=== PATIENT | female | born 1965 | race Caucasian/White ===

== ENCOUNTER 2018-07-18 16:47 | Emergency (ER) | payer OTHER ==
[~2018-07-18] VITALS: Ht 162.6 cm; Wt 131.5 kg
--- OUTSIDE RECORDS SUMMARY | ~2018-07-18 | XMS ---
Demographics + + + | Address | [address] | | | [address] | | | [place] [address] | + + + | Preferred Language | Unknown | + + + | Marital Status | Unknown | + + + | Synagogue Affiliation | Unknown | + + + | Race | Unknown | + + + | Ethnic Group | Unknown | + + + Author + + + | Author | [facility] | + + + | Organization | [facility] | + + + | Address | [address] | | | [place] [address] | + + + | Phone | | + + + Care Team Providers + + + + | Care Lean Engineer Name | Role | Phone | + + + + Unavailable | Unavailable | + + + + PROBLEMS +---------+ + + +--------+ + + | Type | Condition | ICD9-CM | [id number] | Onset | Condition | SNOMED | | | | Code | Code | Dates | Status | Code | +---------+ + + +--------+ + + | Problem | History of | Z87.448 | | | Active | [id number] | | | renal | | | | | | | | failure | | | | | | +---------+ + + +--------+ + + | Problem | Gastric | Z98.84 | | | Active | 421946945 | | | bypass | | | | | | | | status for | | | | | | | | obesity | | | | | | +---------+ + + +--------+ + + | Problem | Fatigue | | R53.83 | | Active | 22336463 | +---------+ + + +--------+ + + | Problem | Endometria | R93.8 | | | Active | 824778573 | | | l stripe | | | | | | | | increased | | | | | | +---------+ + + +--------+ + + | Problem | Anemia, | | D64.9 | | Active | 072952025 | | | unspecifie | | | | | | | | d | | | | | | +---------+ + + +--------+ + + | Problem | Wellness | Z00.00 | | | Active | [id number] | | | examinatio | | | | | 66643 | | | n | | | | | | +---------+ + + +--------+ + + | Problem | Knee joint | Z96.659 | | | Active | 188329212 | | | | | | | | | | | replacemen | | | | | | | | t by other | | | | | | | | means | | | | | | +---------+ + + +--------+ + + | Problem | Excessive | N92.0 | | | Active | 542811665 | | | and | | | | | | | | frequent | | | | | | | | menstruati | | | | | | | | on with | | | | | | | | regular | | | | | | | | cycle | | | | | | +---------+ + + +--------+ + + | Problem | Excessive | N92.0 | | | Active | 292922067 | | | or | | | | | | | | frequent | | | | | | | | menstruati | | | | | | | | on | | | | | | +---------+ + + +--------+ + + | Problem | Iron | | D50.9 | | Active | 35206968 | | | deficiency | | | | | | | | anemia | | | | | | +---------+ + + +--------+ + + | Problem | Osteoarthr | 715.90 | | | Active | 621070930 | | | itis | | | | | | +---------+ + + +--------+ + + | Problem | Radicular | M54.16 | | | Active | 196852179 | | | pain of | | | | | | | | right | | | | | | | | lower back | | | | | | +---------+ + + +--------+ + + | Problem | Pain in | | M25.511 | | Active | 954143694 | | | right | | | | | | | | shoulder | | | | | | +---------+ + + +--------+ + + | Problem | Sleep | G47.20 | | | Active | 58988618 | | | pattern | | | | | | | | disturbanc | | | | | | | | e | | | | | | +---------+ + + +--------+ + + ALLERGIES Unknown Allergies SOCIAL HISTORY No smoking Hx information available PLAN OF CARE VITAL SIGNS MEDICATIONS Unknown Medications RESULTS No Results PROCEDURES No Known procedures IMMUNIZATIONS No Known Immunizations"
--- OUTSIDE RECORDS SUMMARY | ~2018-07-18 | XMS ---
Demographics + + + | Address | [address] | | | [address] | | | [place] [address] | + + + | Preferred Language | Unknown | + + + | Marital Status | Unknown | + + + | Caodaism Affiliation | Unknown | + + + | Race | Unknown | + + + | Ethnic Group | Unknown | + + + Author + + + | Author | [facility] | + + + | Organization | [facility] | + + + | Address | [address] | | | [place] [address] | + + + | Phone | | + + + Care Team Providers + + + + | Care Operational Risk Consultant Name | Role | Phone | + + + + Unavailable | Unavailable | + + + + PROBLEMS +---------+ + + +--------+ + + | Type | Condition | ICD9-CM | [id number] | Onset | Condition | SNOMED | | | | Code | Code | Dates | Status | Code | +---------+ + + +--------+ + + | Problem | History of | Z87.448 | | | Active | 866629946 | | | renal | | | | | | | | failure | | | | | | +---------+ + + +--------+ + + | Problem | Gastric | Z98.84 | | | Active | 200697798 | | | bypass | | | | | | | | status for | | | | | | | | obesity | | | | | | +---------+ + + +--------+ + + | Problem | Fatigue | | R53.83 | | Active | 04831602 | +---------+ + + +--------+ + + | Problem | Endometria | R93.8 | | | Active | 348435282 | | | l stripe | | | | | | | | increased | | | | | | +---------+ + + +--------+ + + | Problem | Anemia, | | D64.9 | | Active | 979399275 | | | unspecifie | | | | | | | | d | | | | | | +---------+ + + +--------+ + + | Problem | Wellness | Z00.00 | | | Active | 7511095629 | | | examinatio | | | | | 630[address] | | | n | | | | | | +---------+ + + +--------+ + + | Problem | Knee joint | Z96.659 | | | Active | 232836329 | | | | | | | | | | | replacemen | | | | | | | | t by other | | | | | | | | means | | | | | | +---------+ + + +--------+ + + | Problem | Excessive | N92.0 | | | Active | 571973020 | | | and | | | [...] | N92.0 | | | Active | 647140914 | | | or | | | | | | | | frequent | | | | | | | | menstruati | | | | | | | | on | | | | | | +---------+ + + +--------+ + + | Problem | Iron | | D50.9 | | Active | 00350776 | | | deficiency | | | | | | | | anemia | | | | | | +---------+ + + +--------+ + + | Problem | Osteoarthr | 715.90 | | | Active | 678085590 | | | itis | | | | | | +---------+ + + +--------+ + + | Problem | Radicular | M54.16 | | | Active | 518172651 | | | pain of | | | | | | | | right | | | | | | | | lower back | | | | | | +---------+ + + +--------+ + + | Problem | Pain in | | M25.511 | | Active | 163541818 | | | right | | | | | | | | shoulder | | | | | | +---------+ + + +--------+ + + | Problem | Sleep | G47.20 | | | Active | 44527135 | | | pattern | | | | | | | | disturbanc | | | | | | | | e | | | | | | +---------+ + + +--------+ + + ALLERGIES Unknown Allergies SOCIAL HISTORY No smoking Hx information available PLAN OF CARE VITAL SIGNS MEDICATIONS + + + + + + + +--------+ | Medicati | Instruct | Dosage | Frequenc | Start | End Date | Duration | Status | | on | ions | | y | Date | | | | + + + + + + + +--------+ | Ambien 5 | Orally | 1 tablet | 24h | 06 John, | | 30 | Active | | MG | Once a | at | | 2017 | | day(s) | | | | day | bedtime | | | | | | + + + + + + + +--------+ RESULTS No Results PROCEDURES No Known procedures IMMUNIZATIONS No Known Immunizations"
--- OUTSIDE RECORDS SUMMARY | ~2018-07-18 | XMS ---
Demographics + + + | Address | [address] | | | [address] | | | [place] [address] | + + + | Preferred Language | Unknown | + + + | Marital Status | Unknown | + + + | Evangelical Affiliation | Unknown | + + + | Race | Unknown | + + + | Ethnic Group | Unknown | + + + Author + + + | Author | [facility] | + + + | Organization | [facility] | + + + | Address | [address] | | | [place] [address] | + + + | Phone | | + + + Care Team Providers + + + + | Care Immigration Case Manager Name | Role | Phone | + + + + Unavailable | Unavailable | + + + + PROBLEMS + + + + + + + + | Type | Condition | ICD9-CM | PVM46-UA | Onset | Condition | SNOMED | | | | Code | Code | Dates | Status | Code | + + + + + + + + | Problem | Sleep | G47.20 | | | Active | 43275929 | | | pattern | | | | | | | | disturbanc | | | | | | | | e | | | | | | + + + + + + + + | Problem | Fatigue | | R53.83 | | Active | 92152152 | + + + + + + + + | Problem | History of | Z87.448 | | | Active | 935322054 | | | renal | | | | | | | | failure | | | | | | + + + + + + + + | Problem | Anemia, | | D64.9 | | Active | 635300437 | | | unspecifie | | | | | | | | d | | | | | | + + + + + + + + | Problem | Excessive | N92.0 | | | Active | 973551468 | | | and | | | | | | | | frequent | | | | | | | | menstruati | | | | | | | | on with | | | | | | | | regular | | | | | | | | cycle | | | | | | + + + + + + + + | Problem | Knee joint | Z96.659 | | | Active | 454855368 | | | | | | | | | | | replacemen | | | | | | | | t by other | | | | | | | | means | | | | | | + + + + + + + + | Problem | Gastric | Z98.84 | | | Active | 900912657 | | | bypass | | | | | | | | status for | | | | | | | | obesity | | | | | | + + + + + + + + | Problem | Excessive | N92.0 | | | Active | 850647105 | | | or | | | | | | | | frequent | | | | | | | | menstruati | | | | | | | | on | | | | | | + + + + + + + + | Problem | Wellness | Z00.00 | | | Active | 0912214859 | | | examinatio | | | | | [address] | | | n | | | | | | + + + + + + + + | Problem | Pain in | | M25.511 | | Active | 054805331 | | | right | | | | | | | | shoulder | | | | | | + + + + + + + + | Problem | Iron | | D50.9 | | Active | 80514535 | | | deficiency | | | | | | | | anemia | | | | | | + + + + + + + + | Assessment | Dermatitis | L25.9 | | 17 June, | Active | 70846888 | | | , contact | | | 2016 | | | + + + + + + + + | Problem | Osteoarthr | 715.90 | | | Active | 843306361 | | | itis | | | | | | + + + + + + + + | Assessment | Anemia, | | D64.9 | 17 June, | Active | 458348338 | | | unspecifie | | | 2016 | | | | | d | | | | | | + + + + + + + + | Problem | Radicular | M54.16 | | | Active | 748412001 | | | pain of | | | | | | | | right | | | | | | | | lower back | | | | | | + + + + + + + + ALLERGIES + + + + +--------+ | Substance | Reaction | Event Type | Date | Status | + + + + +--------+ | erythromycin | Unknown | Drug Allergy | June, | Active | + + + + +--------+ | Sulfa | Unknown | Drug Allergy | June, | Active | + + + + +--------+ | Percocet | Unknown | Drug Allergy | June, | Active | + + + + +--------+ | Dilaudid | Unknown | Drug Allergy | June, | Active | + + + + +--------+ | Demerol | Unknown | Drug Allergy | June, | Active | + + + + +--------+ | ASPIRIN, | Unknown | Non Drug | June, | Active | | DEMEROL, SULFA, | | Allergy | | | | AND | | | | | | AZITHROMYCIN. | | | | | + + + + +--------+ SOCIAL HISTORY No smoking Hx information available PLAN OF CARE + +---------+ | Activity | Details | + +---------+ +---+ | | +---+ + + + | Pending Test | Ultrasound : Pelvis | + + + | | 4 Weeks, prn,Reason: | + + + VITAL SIGNS + + + + | Height | 65.5 in | 2016-07-07 | + + + + | Weight | 294.6 lbs | 2016-07-07 | + + + + | BMI | 48.27 kg/m2 | 2016-07-07 | + + + + | Temperature | 97.5 degrees Fahrenheit | 2016-07-07 | + + + + | Heart Rate | 92 /min | 2016-07-07 | + + + + | Blood pressure systolic | 148 mm Hg | 2016-07-07 | + + + + | Blood pressure diastolic | 92 mm Hg | 2016-07-07 | + + + + MEDICATIONS + + + + + + + +--------+ | Medicati | Instruct | Dosage | Frequenc | Start | End Date | Duration | Status | | on | ions | | y | Date | | | | + + + + + + + +--------+ | Triamcin | External | 1 | 12h | | | 10 | Active | | olone | ly Twice | applicat | | | | day(s) | | | Acetonid | a day | ion to | | | | | | | e 0.1 % | | affected | | | | | | | | | area | | | | | | + + + + + + + +--------+ | Levaquin | Orally | 1 tablet | 24h | 17 June, | 27 June, | 10 | Active | | 750 MG | Once a | | | 2017 | 2017 | day(s) | | | | day | | | | | | | + + + + + + + +--------+ | Oxycodon | Orally | 2 to 4 | 6h | | | | Active | | e HCl 5 | every 6 | caps | | | | | | | MG | hrs | | | | | | | + + + + + + + +--------+ RESULTS No Results PROCEDURES + + + + + | Procedure | Date Ordered | Related Diagnosis | Body Site | + + + + + | Est Level III | July 07, 2016 | | | | Intermediate | | | | + + + + + IMMUNIZATIONS No Known Immunizations"
--- OUTSIDE RECORDS SUMMARY | ~2018-07-18 | XMS ---
Demographics + + + | Address | [address] | | | [address] | | | [place] [address] | + + + | Preferred Language | Unknown | + + + | Marital Status | Unknown | + + + | Amish Affiliation | Unknown | + + + | Race | Unknown | + + + | Ethnic Group | Unknown | + + + Author + + + | Author | [facility] | + + + | Organization | [facility] | + + + | Address | [address] | | | [place] [address] | + + + | Phone | | + + + Care Team Providers + + + + | Care Inside Sales Account Manager Name | Role | Phone | + + + + Unavailable | Unavailable | + + + + PROBLEMS +---------+ + + +--------+ + + | Type | Condition | ICD9-CM | [id number] | Onset | Condition | SNOMED | | | | Code | Code | Dates | Status | Code | +---------+ + + +--------+ + + | Problem | History of | Z87.448 | | | Active | 228327732 | | | renal | | | | | | | | failure | | | | | | +---------+ + + +--------+ + + | Problem | Gastric | Z98.84 | | | Active | 960248284 | | | bypass | | | | | | | | status for | | | | | | | | obesity | | | | | | +---------+ + + +--------+ + + | Problem | Fatigue | | R53.83 | | Active | 64247752 | +---------+ + + +--------+ + + | Problem | Endometria | R93.8 | | | Active | 891696571 | | | l stripe | | | | | | | | increased | | | | | | +---------+ + + +--------+ + + | Problem | Anemia, | | D64.9 | | Active | 653539972 | | | unspecifie | | | | | | | | d | | | | | | +---------+ + + +--------+ + + | Problem | Wellness | Z00.00 | | | Active | 8971481517 | | | examinatio | | | | | 86963 | | | n | | | | | | +---------+ + + +--------+ + + | Problem | Knee joint | Z96.659 | | | Active | 510739961 | | | | | | | | | | | replacemen | | | | | | | | t by other | | | | | | | | means | | | | | | +---------+ + + +--------+ + + | Problem | Excessive | N92.0 | | | Active | 132908891 | | | and | | | [...] | N92.0 | | | Active | 297077041 | | | or | | | | | | | | frequent | | | | | | | | menstruati | | | | | | | | on | | | | | | +---------+ + + +--------+ + + | Problem | Iron | | D50.9 | | Active | 42618575 | | | deficiency | | | | | | | | anemia | | | | | | +---------+ + + +--------+ + + | Problem | Osteoarthr | 715.90 | | | Active | 036712953 | | | itis | | | | | | +---------+ + + +--------+ + + | Problem | Radicular | M54.16 | | | Active | 363416303 | | | pain of | | | | | | | | right | | | | | | | | lower back | | | | | | +---------+ + + +--------+ + + | Problem | Pain in | | M25.511 | | Active | 664273000 | | | right | | | | | | | | shoulder | | | | | | +---------+ + + +--------+ + + | Problem | Sleep | G47.20 | | | Active | 73950496 | | | pattern | | | [...]
--- OUTSIDE RECORDS SUMMARY | ~2018-07-18 | XMS ---
Demographics + + + | Address | [address] | | | [address] | | | [place] [address] | + + + | Preferred Language | Unknown | + + + | Marital Status | Unknown | + + + | Temple Affiliation | Unknown | + + + | Race | Unknown | + + + | Ethnic Group | Unknown | + + + Author + + + | Author | [facility] | + + + | Organization | [facility] | + + + | Address | [address] | | | [place] [address] | + + + | Phone | | + + + Care Team Providers + + + + | Care Cylinder Head Assembler Name | Role | Phone | + + + + Unavailable | Unavailable | + + + + PROBLEMS +---------+ + + +--------+ + + | Type | Condition | ICD9-CM | [id number] | Onset | Condition | SNOMED | | | | Code | Code | Dates | Status | Code | +---------+ + + +--------+ + + | Problem | Sleep | G47.20 | | | Active | 21710092 | | | pattern | | | | | | | | disturbanc | | | | | | | | e | | | | | | +---------+ + + +--------+ + + | Problem | Fatigue | | R53.83 | | Active | 40838200 | +---------+ + + +--------+ + + | Problem | History of | Z87.448 | | | Active | 020379189 | | | renal | | | | | | | | failure | | | | | | +---------+ + + +--------+ + + | Problem | Pain in | | M25.511 | | Active | 422222958 | | | right | | | | | | | | shoulder | | | | | | +---------+ + + +--------+ + + | Problem | Iron | | D50.9 | | Active | 74878418 | | | deficiency | | | | | | | | anemia | | | | | | +---------+ + + +--------+ + + | Problem | Osteoarthr | 715.90 | | | Active | 782082287 | | | itis | | | | | | +---------+ + + +--------+ + + | Problem | Radicular | M54.16 | | | Active | 045696841 | | | pain of | | | | | | | | right | | | | | | | | lower back | | | | | | +---------+ + + +--------+ + + | Problem | Anemia, | | D64.9 | | Active | 275674692 | | | unspecifie | | | | | | | | d | | | | | | +---------+ + + +--------+ + + | Problem | Excessive | N92.0 | | | Active | 312608374 | | | and | | | [...] | Z96.659 | | | Active | 617566327 | | | | | | | | | | | replacemen | | | | | | | | t by other | | | | | | | | means | | | | | | +---------+ + + +--------+ + + | Problem | Gastric | Z98.84 | | | Active | 207464426 | | | bypass | | | | | | | | status for | | | | | | | | obesity | | | | | | +---------+ + + +--------+ + + | Problem | Excessive | N92.0 | | | Active | 539408663 | | | or | | | | | | | | frequent | | | | | | | | menstruati | | | | | | | | on | | | | | | +---------+ + + +--------+ + + | Problem | Wellness | Z00.00 | | | Active | 0949198045 | | | examinatio | | | | | [address] | | | n | | | | | | +---------+ + + +--------+ + + ALLERGIES Unknown Allergies SOCIAL HISTORY No smoking Hx information available PLAN OF CARE + +---------+ | Activity | Details | + +---------+ +---+ | | +---+ + + + | Pending Test | Ultrasound : Pelvis | + + + | | ,Reason: | + + + VITAL SIGNS MEDICATIONS Unknown Medications RESULTS No Results PROCEDURES No Known procedures IMMUNIZATIONS No Known Immunizations"
--- OUTSIDE RECORDS SUMMARY | ~2018-07-18 | XMS ---
Demographics + + + | Address | [address] | | | [address] | | | [place] [address] | + + + | Preferred Language | Unknown | + + + | Marital Status | Unknown | + + + | Taoist Affiliation | Unknown | + + + | Race | Unknown | + + + | Ethnic Group | Unknown | + + + Author + + + | Author | [facility] | + + + | Organization | [facility] | + + + | Address | [address] | | | [place] [address] | + + + | Phone | | + + + Care Team Providers + + + + | Care Escalator Constructor Name | Role | Phone | + + + + Unavailable | Unavailable | + + + + PROBLEMS +---------+ + + +--------+ + + | Type | Condition | ICD9-CM | [id number] | Onset | Condition | SNOMED | | | | Code | Code | Dates | Status | Code | +---------+ + + +--------+ + + | Problem | History of | Z87.448 | | | Active | 164931640 | | | renal | | | | | | | | failure | | | | | | +---------+ + + +--------+ + + | Problem | Gastric | Z98.84 | | | Active | 809632495 | | | bypass | | | | | | | | status for | | | | | | | | obesity | | | | | | +---------+ + + +--------+ + + | Problem | Fatigue | | R53.83 | | Active | 49573401 | +---------+ + + +--------+ + + | Problem | Endometria | R93.8 | | | Active | 211072333 | | | l stripe | | | | | | | | increased | | | | | | +---------+ + + +--------+ + + | Problem | Anemia, | | D64.9 | | Active | 849917278 | | | unspecifie | | | | | | | | d | | | | | | +---------+ + + +--------+ + + | Problem | Wellness | Z00.00 | | | Active | 5527100845 | | | examinatio | | | | | [address] | | | n | | | | | | +---------+ + + +--------+ + + | Problem | Knee joint | Z96.659 | | | Active | 072828099 | | | | | | | | | | | replacemen | | | | | | | | t by other | | | | | | | | means | | | | | | +---------+ + + +--------+ + + | Problem | Excessive | N92.0 | | | Active | 244144271 | | | and | | | [...] | N92.0 | | | Active | 073704135 | | | or | | | | | | | | frequent | | | | | | | | menstruati | | | | | | | | on | | | | | | +---------+ + + +--------+ + + | Problem | Iron | | D50.9 | | Active | 01246689 | | | deficiency | | | | | | | | anemia | | | | | | +---------+ + + +--------+ + + | Problem | Osteoarthr | 715.90 | | | Active | 375164854 | | | itis | | | | | | +---------+ + + +--------+ + + | Problem | Radicular | M54.16 | | | Active | 453207628 | | | pain of | | | | | | | | right | | | | | | | | lower back | | | | | | +---------+ + + +--------+ + + | Problem | Pain in | | M25.511 | | Active | 478263664 | | | right | | | | | | | | shoulder | | | | | | +---------+ + + +--------+ + + | Problem | Sleep | G47.20 | | | Active | 43792110 | | | pattern | | | [...] Orally | 1 tablet | 24h | Aug, | | 30 | Active | | MG | Once a | at | | 2017 | | day(s) | | | | day | bedtime | | | | | | + + + + + + + +--------+ | Bactrim | Orally | 2 | 24h | Sep, | 27 Sep, | 5 days | Active | | 400-80 | Once a | tablets | | 2016 | 2016 | | | | MG | day | | | | | | | + + + + + + + +--------+ RESULTS No Results PROCEDURES No Known procedures IMMUNIZATIONS No Known Immunizations"
--- OUTSIDE RECORDS SUMMARY | ~2018-07-18 | XMS ---
Demographics + + + | Address | [address] | | | [address] | | | [place] [address] | + + + | Preferred Language | Unknown | + + + | Marital Status | Unknown | + + + | Moravian Affiliation | Unknown | + + + | Race | Unknown | + + + | Ethnic Group | Unknown | + + + Author + + + | Author | [facility] | + + + | Organization | [facility] | + + + | Address | [address] | | | [place] [address] | + + + | Phone | | + + + Care Team Providers + + + + | Care Code Number Stamper Name | Role | Phone | + + + + Unavailable | Unavailable | + + + + PROBLEMS +---------+ + + +--------+ + + | Type | Condition | ICD9-CM | [id number] | Onset | Condition | SNOMED | | | | Code | Code | Dates | Status | Code | +---------+ + + +--------+ + + | Problem | History of | Z87.448 | | | Active | 626448347 | | | renal | | | | | | | | failure | | | | | | +---------+ + + +--------+ + + | Problem | Gastric | Z98.84 | | | Active | 967954000 | | | bypass | | | | | | | | status for | | | | | | | | obesity | | | | | | +---------+ + + +--------+ + + | Problem | Fatigue | | R53.83 | | Active | 56087461 | +---------+ + + +--------+ + + | Problem | Endometria | R93.8 | | | Active | 492456033 | | | l stripe | | | | | | | | increased | | | | | | +---------+ + + +--------+ + + | Problem | Anemia, | | D64.9 | | Active | 003550255 | | | unspecifie | | | | | | | | d | | | | | | +---------+ + + +--------+ + + | Problem | Wellness | Z00.00 | | | Active | 2444683951 | | | examinatio | | | | | [address] | | | n | | | | | | +---------+ + + +--------+ + + | Problem | Knee joint | Z96.659 | | | Active | 429840069 | | | | | | | | | | | replacemen | | | | | | | | t by other | | | | | | | | means | | | | | | +---------+ + + +--------+ + + | Problem | Excessive | N92.0 | | | Active | 271297586 | | | and | | | [...] | N92.0 | | | Active | 195681374 | | | or | | | | | | | | frequent | | | | | | | | menstruati | | | | | | | | on | | | | | | +---------+ + + +--------+ + + | Problem | Iron | | D50.9 | | Active | 73653808 | | | deficiency | | | | | | | | anemia | | | | | | +---------+ + + +--------+ + + | Problem | Osteoarthr | 715.90 | | | Active | 655773312 | | | itis | | | | | | +---------+ + + +--------+ + + | Problem | Radicular | M54.16 | | | Active | 200319561 | | | pain of | | | | | | | | right | | | | | | | | lower back | | | | | | +---------+ + + +--------+ + + | Problem | Pain in | | M25.511 | | Active | 584686926 | | | right | | | | | | | | shoulder | | | | | | +---------+ + + +--------+ + + | Problem | Sleep | G47.20 | | | Active | 64532441 | | | pattern | | | | | | | | disturbanc | | | | | | | | e | | | | | | +---------+ + + +--------+ + + ALLERGIES Unknown Allergies SOCIAL HISTORY No smoking Hx information available PLAN OF CARE + +---------+ | Activity | Details | + +---------+ +---+ | | +---+ + +------+ | Pending Test | cbc | + +------+ VITAL SIGNS MEDICATIONS Unknown Medications RESULTS No Results PROCEDURES No Known procedures IMMUNIZATIONS No Known Immunizations"
--- OUTSIDE RECORDS SUMMARY | ~2018-07-18 | XMS ---
Demographics + + + | Address | [address] | | | [address] | | | [place] [address] | + + + | Preferred Language | Unknown | + + + | Marital Status | Unknown | + + + | Mandaeism Affiliation | Unknown | + + + | Race | Unknown | + + + | Ethnic Group | Unknown | + + + Author + + + | Author | [facility] | + + + | Organization | [facility] | + + + | Address | [address] | | | [place] [address] | + + + | Phone | | + + + Care Team Providers + + + + | Care Dirt Bike Racer Name | Role | Phone | + + + + Unavailable | Unavailable | + + + + PROBLEMS +---------+ + + +--------+ + + | Type | Condition | ICD9-CM | [id number] | Onset | Condition | SNOMED | | | | Code | Code | Dates | Status | Code | +---------+ + + +--------+ + + | Problem | History of | Z87.448 | | | Active | 481646107 | | | renal | | | | | | | | failure | | | | | | +---------+ + + +--------+ + + | Problem | Gastric | Z98.84 | | | Active | 470664609 | | | bypass | | | | | | | | status for | | | | | | | | obesity | | | | | | +---------+ + + +--------+ + + | Problem | Fatigue | | R53.83 | | Active | 36180574 | +---------+ + + +--------+ + + | Problem | Endometria | R93.8 | | | Active | 737283189 | | | l stripe | | | | | | | | increased | | | | | | +---------+ + + +--------+ + + | Problem | Anemia, | | D64.9 | | Active | 309624696 | | | unspecifie | | | | | | | | d | | | | | | +---------+ + + +--------+ + + | Problem | Wellness | Z00.00 | | | Active | 1906606746 | | | examinatio | | | | | [address] | | | n | | | | | | +---------+ + + +--------+ + + | Problem | Knee joint | Z96.659 | | | Active | 123570595 | | | | | | | | | | | replacemen | | | | | | | | t by other | | | | | | | | means | | | | | | +---------+ + + +--------+ + + | Problem | Excessive | N92.0 | | | Active | 277806439 | | | and | | | [...] | N92.0 | | | Active | 145999404 | | | or | | | | | | | | frequent | | | | | | | | menstruati | | | | | | | | on | | | | | | +---------+ + + +--------+ + + | Problem | Iron | | D50.9 | | Active | 49987477 | | | deficiency | | | | | | | | anemia | | | | | | +---------+ + + +--------+ + + | Problem | Osteoarthr | 715.90 | | | Active | 258598028 | | | itis | | | | | | +---------+ + + +--------+ + + | Problem | Radicular | M54.16 | | | Active | 500225645 | | | pain of | | | | | | | | right | | | | | | | | lower back | | | | | | +---------+ + + +--------+ + + | Problem | Pain in | | M25.511 | | Active | 682211343 | | | right | | | | | | | | shoulder | | | | | | +---------+ + + +--------+ + + | Problem | Sleep | G47.20 | | | Active | 92060421 | | | pattern | | | [...]
--- OUTSIDE RECORDS SUMMARY | ~2018-07-18 | XMS ---
Demographics + + + | Address | [address] | | | [address] | | | [place] [address] | + + + | Preferred Language | Unknown | + + + | Marital Status | Unknown | + + + | Jewish Affiliation | Unknown | + + + | Race | Unknown | + + + | Ethnic Group | Unknown | + + + Author + + + | Author | [facility] | + + + | Organization | [facility] | + + + | Address | [address] | | | [place] [address] | + + + | Phone | | + + + Care Team Providers + + + + | Care Trestleman Name | Role | Phone | + + + + Unavailable | Unavailable | + + + + PROBLEMS +---------+ + + +--------+ + + | Type | Condition | ICD9-CM | MWT25-[id number] | Onset | Condition | SNOMED | | | | Code | Code | Dates | Status | Code | +---------+ + + +--------+ + + | Problem | History of | Z87.448 | | | Active | 450492255 | | | renal | | | | | | | | failure | | | | | | +---------+ + + +--------+ + + | Problem | Gastric | Z98.84 | | | Active | 158323977 | | | bypass | | | | | | | | status for | | | | | | | | obesity | | | | | | +---------+ + + +--------+ + + | Problem | Fatigue | | R53.83 | | Active | 93568215 | +---------+ + + +--------+ + + | Problem | Endometria | R93.8 | | | Active | 707019401 | | | l stripe | | | | | | | | increased | | | | | | +---------+ + + +--------+ + + | Problem | Anemia, | | D64.9 | | Active | 691330391 | | | unspecifie | | | | | | | | d | | | | | | +---------+ + + +--------+ + + | Problem | Wellness | Z00.00 | | | Active | 0109741876 | | | examinatio | | | | | [address]64[address] | | | n | | | | | | +---------+ + + +--------+ + + | Problem | Knee joint | Z96.659 | | | Active | 385797913 | | | | | | | | | | | replacemen | | | | | | | | t by other | | | | | | | | means | | | | | | +---------+ + + +--------+ + + | Problem | Excessive | N92.0 | | | Active | 553731249 | | | and | | | [...] | N92.0 | | | Active | 269786884 | | | or | | | | | | | | frequent | | | | | | | | menstruati | | | | | | | | on | | | | | | +---------+ + + +--------+ + + | Problem | Iron | | D50.9 | | Active | 54282144 | | | deficiency | | | | | | | | anemia | | | | | | +---------+ + + +--------+ + + | Problem | Osteoarthr | 715.90 | | | Active | 589678056 | | | itis | | | | | | +---------+ + + +--------+ + + | Problem | Radicular | M54.16 | | | Active | 041474508 | | | pain of | | | | | | | | right | | | | | | | | lower back | | | | | | +---------+ + + +--------+ + + | Problem | Pain in | | M25.511 | | Active | 104464124 | | | right | | | | | | | | shoulder | | | | | | +---------+ + + +--------+ + + | Problem | Sleep | G47.20 | | | Active | 55058888 | | | pattern | | | [...]
--- OUTSIDE RECORDS SUMMARY | ~2018-07-18 | XMS ---
Demographics + + + | Address | [address] | | | [address] | | | [place] [address] | + + + | Preferred Language | Unknown | + + + | Marital Status | Unknown | + + + | Samaritan Affiliation | Unknown | + + + | Race | Unknown | + + + | Ethnic Group | Unknown | + + + Author + + + | Author | [facility] | + + + | Organization | [facility] | + + + | Address | [address] | | | [place] [address] | + + + | Phone | | + + + Care Team Providers + + + + | Care Steam Conditioner Operator Name | Role | Phone | + + + + Unavailable | Unavailable | + + + + PROBLEMS +---------+ + + +--------+ + + | Type | Condition | ICD9-CM | HUY26-AB | Onset | Condition | SNOMED | | | | Code | Code | Dates | Status | Code | +---------+ + + +--------+ + + | Problem | Sleep | G47.20 | | | Active | 45673906 | | | pattern | | | | | | | | disturbanc | | | | | | | | e | | | | | | +---------+ + + +--------+ + + | Problem | Fatigue | | R53.83 | | Active | 85747898 | +---------+ + + +--------+ + + | Problem | History of | Z87.448 | | | Active | 388048365 | | | renal | | | | | | | | failure | | | | | | +---------+ + + +--------+ + + | Problem | Pain in | | M25.511 | | Active | 234097095 | | | right | | | | | | | | shoulder | | | | | | +---------+ + + +--------+ + + | Problem | Iron | | D50.9 | | Active | 36571676 | | | deficiency | | | | | | | | anemia | | | | | | +---------+ + + +--------+ + + | Problem | Osteoarthr | 715.90 | | | Active | 165900805 | | | itis | | | | | | +---------+ + + +--------+ + + | Problem | Radicular | M54.16 | | | Active | 762207993 | | | pain of | | | | | | | | right | | | | | | | | lower back | | | | | | +---------+ + + +--------+ + + | Problem | Anemia, | | D64.9 | | Active | 838819280 | | | unspecifie | | | | | | | | d | | | | | | +---------+ + + +--------+ + + | Problem | Excessive | N92.0 | | | Active | 920442425 | | | and | | | [...] | Z96.659 | | | Active | 505971255 | | | | | | | | | | | replacemen | | | | | | | | t by other | | | | | | | | means | | | | | | +---------+ + + +--------+ + + | Problem | Gastric | Z98.84 | | | Active | 571282820 | | | bypass | | | | | | | | status for | | | | | | | | obesity | | | | | | +---------+ + + +--------+ + + | Problem | Excessive | N92.0 | | | Active | 010185782 | | | or | | | | | | | | frequent | | | | | | | | menstruati | | | | | | | | on | | | | | | +---------+ + + +--------+ + + | Problem | Wellness | Z00.00 | | | Active | 2257993951 | | | examinatio | | | | | [address] | | | n | | | | | | +---------+ + + +--------+ + + ALLERGIES Unknown Allergies SOCIAL HISTORY No smoking Hx information available PLAN OF CARE VITAL SIGNS MEDICATIONS Unknown Medications RESULTS No Results PROCEDURES No Known procedures IMMUNIZATIONS No Known Immunizations"
--- OUTSIDE RECORDS SUMMARY | ~2018-07-18 | XMS ---
Demographics + + + | Address | [address] | | | [address] | | | [place] [address] | + + + | Preferred Language | Unknown | + + + | Marital Status | Unknown | + + + | Mu-Ism Affiliation | Unknown | + + + | Race | Unknown | + + + | Ethnic Group | Unknown | + + + Author + + + | Author | [facility] | + + + | Organization | [facility] | + + + | Address | [address] | | | [place] [address] | + + + | Phone | | + + + Care Team Providers + + + + | Care Service Observer Chief Name | Role | Phone | + + + + Unavailable | Unavailable | + + + + PROBLEMS +---------+ + + +--------+ + + | Type | Condition | ICD9-CM | GPT33-EV | Onset | Condition | SNOMED | | | | Code | Code | Dates | Status | Code | +---------+ + + +--------+ + + | Problem | History of | Z87.448 | | | Active | 238327211 | | | renal | | | | | | | | failure | | | | | | +---------+ + + +--------+ + + | Problem | Gastric | Z98.84 | | | Active | 011893991 | | | bypass | | | | | | | | status for | | | | | | | | obesity | | | | | | +---------+ + + +--------+ + + | Problem | Fatigue | | R53.83 | | Active | 26340131 | +---------+ + + +--------+ + + | Problem | Endometria | R93.8 | | | Active | 004658547 | | | l stripe | | | | | | | | increased | | | | | | +---------+ + + +--------+ + + | Problem | Anemia, | | D64.9 | | Active | 534319547 | | | unspecifie | | | | | | | | d | | | | | | +---------+ + + +--------+ + + | Problem | Wellness | Z00.00 | | | Active | 3338357390 | | | examinatio | | | | | [address]95[address] | | | n | | | | | | +---------+ + + +--------+ + + | Problem | Knee joint | Z96.659 | | | Active | 386511782 | | | | | | | | | | | replacemen | | | | | | | | t by other | | | | | | | | means | | | | | | +---------+ + + +--------+ + + | Problem | Excessive | N92.0 | | | Active | 319184889 | | | and | | | [...] | N92.0 | | | Active | 698272211 | | | or | | | | | | | | frequent | | | | | | | | menstruati | | | | | | | | on | | | | | | +---------+ + + +--------+ + + | Problem | Iron | | D50.9 | | Active | 38879022 | | | deficiency | | | | | | | | anemia | | | | | | +---------+ + + +--------+ + + | Problem | Osteoarthr | 715.90 | | | Active | 360214095 | | | itis | | | | | | +---------+ + + +--------+ + + | Problem | Radicular | M54.16 | | | Active | 746134762 | | | pain of | | | | | | | | right | | | | | | | | lower back | | | | | | +---------+ + + +--------+ + + | Problem | Pain in | | M25.511 | | Active | 265913227 | | | right | | | | | | | | shoulder | | | | | | +---------+ + + +--------+ + + | Problem | Sleep | G47.20 | | | Active | 39749633 | | | pattern | | | [...]
--- OUTSIDE RECORDS SUMMARY | ~2018-07-18 | XMS ---
Demographics + + + | Address | [address] | | | [address] | | | [place] [address] | + + + | Preferred Language | Unknown | + + + | Marital Status | Unknown | + + + | Holiness Affiliation | Unknown | + + + | Race | Unknown | + + + | Ethnic Group | Unknown | + + + Author + + + | Author | [facility] | + + + | Organization | [facility] | + + + | Address | [address] | | | [place] [address] | + + + | Phone | | + + + Care Team Providers + + + + | Care Layaway Clerk Name | Role | Phone | + + + + Unavailable | Unavailable | + + + + PROBLEMS +---------+ + + +--------+ + + | Type | Condition | ICD9-CM | DDE91-[id number] | Onset | Condition | SNOMED | | | | Code | Code | Dates | Status | Code | +---------+ + + +--------+ + + | Problem | Sleep | G47.20 | | | Active | 89132974 | | | pattern | | | | | | | | disturbanc | | | | | | | | e | | | | | | +---------+ + + +--------+ + + | Problem | Fatigue | | R53.83 | | Active | 54643106 | +---------+ + + +--------+ + + | Problem | History of | Z87.448 | | | Active | 044363996 | | | renal | | | | | | | | failure | | | | | | +---------+ + + +--------+ + + | Problem | Pain in | | M25.511 | | Active | 340762965 | | | right | | | | | | | | shoulder | | | | | | +---------+ + + +--------+ + + | Problem | Iron | | D50.9 | | Active | 23144103 | | | deficiency | | | | | | | | anemia | | | | | | +---------+ + + +--------+ + + | Problem | Osteoarthr | 715.90 | | | Active | 153895139 | | | itis | | | | | | +---------+ + + +--------+ + + | Problem | Radicular | M54.16 | | | Active | 582842472 | | | pain of | | | | | | | | right | | | | | | | | lower back | | | | | | +---------+ + + +--------+ + + | Problem | Anemia, | | D64.9 | | Active | 429793940 | | | unspecifie | | | | | | | | d | | | | | | +---------+ + + +--------+ + + | Problem | Excessive | N92.0 | | | Active | 559218209 | | | and | | | [...] | Z96.659 | | | Active | 714379207 | | | | | | | | | | | replacemen | | | | | | | | t by other | | | | | | | | means | | | | | | +---------+ + + +--------+ + + | Problem | Gastric | Z98.84 | | | Active | 474693667 | | | bypass | | | | | | | | status for | | | | | | | | obesity | | | | | | +---------+ + + +--------+ + + | Problem | Excessive | N92.0 | | | Active | 096511872 | | | or | | | | | | | | frequent | | | | | | | | menstruati | | | | | | | | on | | | | | | +---------+ + + +--------+ + + | Problem | Wellness | Z00.00 | | | Active | 8382789052 | | | examinatio | | | | | [address] | | | n | | | | | | +---------+ + + +--------+ + + ALLERGIES Unknown Allergies SOCIAL HISTORY No smoking Hx information available PLAN OF CARE VITAL SIGNS MEDICATIONS Unknown Medications RESULTS No Results PROCEDURES No Known procedures IMMUNIZATIONS No Known Immunizations"
--- OUTSIDE RECORDS SUMMARY | ~2018-07-18 | XMS ---
Demographics + + + | Address | [address] | | | [address] | | | [place] [address] | + + + | Preferred Language | Unknown | + + + | Marital Status | Unknown | + + + | Jehovah'S Witness Affiliation | Unknown | + + + | Race | Unknown | + + + | Ethnic Group | Unknown | + + + Author + + + | Author | [facility] | + + + | Organization | [facility] | + + + | Address | [address] | | | [place] [address] | + + + | Phone | | + + + Care Team Providers + + + + | Care Photographer Lithographic Name | Role | Phone | + + + + Unavailable | Unavailable | + + + + PROBLEMS +---------+ + + +--------+ + + | Type | Condition | ICD9-CM | ENO62-PJ | Onset | Condition | SNOMED | | | | Code | Code | Dates | Status | Code | +---------+ + + +--------+ + + | Problem | History of | Z87.448 | | | Active | 475233605 | | | renal | | | | | | | | failure | | | | | | +---------+ + + +--------+ + + | Problem | Gastric | Z98.84 | | | Active | 712338626 | | | bypass | | | | | | | | status for | | | | | | | | obesity | | | | | | +---------+ + + +--------+ + + | Problem | Fatigue | | R53.83 | | Active | 36534255 | +---------+ + + +--------+ + + | Problem | Endometria | R93.8 | | | Active | 409439642 | | | l stripe | | | | | | | | increased | | | | | | +---------+ + + +--------+ + + | Problem | Anemia, | | D64.9 | | Active | 289938285 | | | unspecifie | | | | | | | | d | | | | | | +---------+ + + +--------+ + + | Problem | Wellness | Z00.00 | | | Active | 3409055090 | | | examinatio | | | | | [address] | | | n | | | | | | +---------+ + + +--------+ + + | Problem | Knee joint | Z96.659 | | | Active | 104945575 | | | | | | | | | | | replacemen | | | | | | | | t by other | | | | | | | | means | | | | | | +---------+ + + +--------+ + + | Problem | Excessive | N92.0 | | | Active | 884479595 | | | and | | | [...] | N92.0 | | | Active | 577387024 | | | or | | | | | | | | frequent | | | | | | | | menstruati | | | | | | | | on | | | | | | +---------+ + + +--------+ + + | Problem | Iron | | D50.9 | | Active | 26260121 | | | deficiency | | | | | | | | anemia | | | | | | +---------+ + + +--------+ + + | Problem | Osteoarthr | 715.90 | | | Active | 349784018 | | | itis | | | | | | +---------+ + + +--------+ + + | Problem | Radicular | M54.16 | | | Active | 707178241 | | | pain of | | | | | | | | right | | | | | | | | lower back | | | | | | +---------+ + + +--------+ + + | Problem | Pain in | | M25.511 | | Active | 560198969 | | | right | | | | | | | | shoulder | | | | | | +---------+ + + +--------+ + + | Problem | Sleep | G47.20 | | | Active | 60939611 | | | pattern | | | | | | | | disturbanc | | | | | | | | e | | | | | | +---------+ + + +--------+ + + ALLERGIES + + + + +--------+ | Substance | Reaction | Event Type | Date | Status | + + + + +--------+ | erythromycin | Unknown | Drug Allergy | Aug, | Active | + + + + +--------+ | Sulfa | Unknown | Drug Allergy | Aug, | Active | + + + + +--------+ | Percocet | Unknown | Drug Allergy | Aug, | Active | + + + + +--------+ | Dilaudid | Unknown | Drug Allergy | Aug, | Active | + + + + +--------+ | Demerol | Unknown | Drug Allergy | Aug, | Active | + + + + +--------+ | ASPIRIN, | Unknown | Non Drug | Aug, | Active | | DEMEROL, SULFA, | | Allergy | | | | AND | | | | | | AZITHROMYCIN. | | | | | + + + + +--------+ SOCIAL HISTORY No smoking Hx information available PLAN OF CARE + +---------+ | Activity | Details | + +---------+ +---+ | | +---+ + + + | Follow Up | prn after seeing v belt finisher for | | | hysterectomy consult Reason:null | + + + | Pending Test | CBC | + + + VITAL SIGNS + + + + | Height | 65.5 in | 2016-08-26 | + + + + | Weight | 298.6 lbs | 2016-08-26 | + + + + | BMI | 48.93 kg/m2 | 2016-08-26 | + + + + | Temperature | 97.0 degrees Fahrenheit | 2016-08-26 | + + + + | Heart Rate | 86 /min | 2016-08-26 | + + + + | Blood pressure systolic | 145 mm Hg | 2016-08-26 | + + + + | Blood pressure diastolic | 86 mm Hg | 2016-08-26 | + + + + MEDICATIONS Unknown Medications RESULTS No Results PROCEDURES + + + + + | Procedure | Date Ordered | Related Diagnosis | Body Site | + + + + + | Est Level III | August 26, 2016 | | | | Intermediate | | | | + + + + + IMMUNIZATIONS No Known Immunizations"
--- OUTSIDE RECORDS SUMMARY | ~2018-07-18 | XMS ---
Demographics + + + | Address | [address] | | | [address] | | | [place] [address] | + + + | Preferred Language | Unknown | + + + | Marital Status | Unknown | + + + | Yarsani Affiliation | Unknown | + + + | Race | Unknown | + + + | Ethnic Group | Unknown | + + + Author + + + | Author | [facility] | + + + | Organization | [facility] | + + + | Address | [address] | | | [place] [address] | + + + | Phone | | + + + Care Team Providers + + + + | Care Power Distributor Name | Role | Phone | + + + + Unavailable | Unavailable | + + + + PROBLEMS +---------+ + + +--------+ + + | Type | Condition | ICD9-CM | LAE85-KH | Onset | Condition | SNOMED | | | | Code | Code | Dates | Status | Code | +---------+ + + +--------+ + + | Problem | History of | Z87.448 | | | Active | 551441550 | | | renal | | | | | | | | failure | | | | | | +---------+ + + +--------+ + + | Problem | Gastric | Z98.84 | | | Active | 339007413 | | | bypass | | | | | | | | status for | | | | | | | | obesity | | | | | | +---------+ + + +--------+ + + | Problem | Fatigue | | R53.83 | | Active | 00458705 | +---------+ + + +--------+ + + | Problem | Endometria | R93.8 | | | Active | 548660782 | | | l stripe | | | | | | | | increased | | | | | | +---------+ + + +--------+ + + | Problem | Anemia, | | D64.9 | | Active | 615974214 | | | unspecifie | | | | | | | | d | | | | | | +---------+ + + +--------+ + + | Problem | Wellness | Z00.00 | | | Active | 0668763596 | | | examinatio | | | | | 92387 | | | n | | | | | | +---------+ + + +--------+ + + | Problem | Knee joint | Z96.659 | | | Active | 432749895 | | | | | | | | | | | replacemen | | | | | | | | t by other | | | | | | | | means | | | | | | +---------+ + + +--------+ + + | Problem | Excessive | N92.0 | | | Active | 443867844 | | | and | | | [...] | N92.0 | | | Active | 875883477 | | | or | | | | | | | | frequent | | | | | | | | menstruati | | | | | | | | on | | | | | | +---------+ + + +--------+ + + | Problem | Iron | | D50.9 | | Active | 99362433 | | | deficiency | | | | | | | | anemia | | | | | | +---------+ + + +--------+ + + | Problem | Osteoarthr | 715.90 | | | Active | 583483098 | | | itis | | | | | | +---------+ + + +--------+ + + | Problem | Radicular | M54.16 | | | Active | 976856873 | | | pain of | | | | | | | | right | | | | | | | | lower back | | | | | | +---------+ + + +--------+ + + | Problem | Pain in | | M25.511 | | Active | 968687033 | | | right | | | | | | | | shoulder | | | | | | +---------+ + + +--------+ + + | Problem | Sleep | G47.20 | | | Active | 85974481 | | | pattern | | | [...] + + + + + +--------+ | Nitrofur | Orally | 1 | 12h | Sep, | Sep, | 5 day(s) | Active | | antoin | bid | capsule | | 2016 | 2016 | | | | Macrocry | | with | | | | | | | stal 100 | | food or | | | | | | | mg | | milk | | | | | | + + + + + + + +--------+ | Ambien 5 | Orally | 1 tablet | 24h | Aug, | | 30 | Active | | MG | Once a | at | | 2016 | | day(s) | | | | day | bedtime | | | | | | + + + + + + + +--------+ | Bactrim | Orally | 2 | 24h | Sep, | Sep, | 5 days | Active | | 400-80 | Once a | tablets | | 2016 | 2016 | | | | MG | day | | | | | | | + + + + + + + +--------+ RESULTS No Results PROCEDURES No Known procedures IMMUNIZATIONS No Known Immunizations"
[~2018-07-18 16:47] MED LIST: ADVIL100 MG PO; AMBIEN5 MG PO; BENADRYL25 MG PO; CALCIUM + D SO1 EACH PO; CALCIUM 500 +1 EAC3 NG; CALTRATE 600 +1 EAC1 PO; DILAUDID4 MG PO; GUMMI BEAR MUL1 EACH PO; INFED100 MG/2 M IV/IM; IRON325 M1 PO; MELOXICAM15 MG PO; MULTI VITAMIN1 EACH PO; OXYCODONE HCL5 M1 PO; VITAMIN B125000 MCG SL; VITAMIN C1000 MG PO; VITAMIN D2000 UNI1 PO; VITAMIN D5000 UNI1 PO; VITAMIN D5000 UNIT PO; VITAMIN D50000 UNI1 PO; ZESTRIL5 MG PO; ZINC50 MG PO
[2018-07-18] MEDS ORDERED: NEURONTIN300 MG PO (17:10)
== END 2018-07-18 17:58 | disposition home or self-care (01) ==
LOC: ED 16:47
DX: S16.1XXA Strain of muscle, fascia and tendon at neck level, initial encounter (principal); Z88.2 Allergy status to sulfonamides; Z88.6 Allergy status to analgesic agent; Z88.5 Allergy status to narcotic agent; Z88.1 Allergy status to other antibiotic agents; Z79.899 Other long term (current) drug therapy; X58.XXXA Exposure to other specified factors, initial encounter
CPT/HCPCS: 72040; 99283-25

== ENCOUNTER 2020-07-26 13:07 | Emergency (ER) | payer OTHER ==
[~2020-07-26] VITALS: Ht 162.6 cm; Wt 131.9 kg
[~2020-07-26 13:07] MED LIST changes: +LISINOPRIL20 MG PO; +NEURONTIN300 MG PO; +OXYBUTYNIN CHLOR5 MG PO; +VENTOLIN HFA18 GM INH
[2020-07-26] MEDS ORDERED: CEPHALEXIN500 MG PO (13:32)
[2020-07-26] MEDS ORDERED: DOXYCYCLINE HY100 MG PO (14:30)
== END 2020-07-26 14:43 | disposition home or self-care (01) ==
LOC: ED 13:07
DX: T81.31XA Disruption of external operation (surgical) wound, not elsewhere classified, initial encounter (principal); Z88.2 Allergy status to sulfonamides; Z88.6 Allergy status to analgesic agent; Z88.5 Allergy status to narcotic agent; Z88.1 Allergy status to other antibiotic agents; Z88.8 Allergy status to other drugs, medicaments and biological substances; Z79.899 Other long term (current) drug therapy
CPT/HCPCS: 73552; 87070; 87077; 87186; 87205; 99283-25

== ENCOUNTER 2020-07-29 14:51 | Emergency (ER) | payer OTHER ==
[~2020-07-29] VITALS: Ht 162.6 cm; Wt 131.9 kg
[~2020-07-29 14:51] MED LIST changes: +CEPHALEXIN500 MG PO; +DOXYCYCLINE HY100 MG PO
--- OUTSIDE RECORDS SUMMARY | 2020-07-29 14:54 | XMS ---
PreManage Notification: DARIA PENA Security Metallurgical Analyst Events No recent Security Events currently on file CRITERIA MET - [facility] - 2 Visits in 30 Days CARE PROVIDERS There are no care providers on record at this time. Melina has no Care Guidelines for this patient. [facility] V[facility] (12 [address] [facility] NOTE: Visits indicate total known visits. ED/C VISIT TRACKING (12 MO.) [facility] COMPLAINT: - WOUND INFECTION 07/26/2020 13:08 [facility] [place] TYPE: Emergency COMPLAINT: - POST OP PROBLEM DIAGNOSES: - Allergy status to other drugs, medicaments and biological substances - Allergy status to other antibiotic agents - Allergy status to analgesic agent - Allergy status to narcotic agent - Other mcfp (current) drug therapy - Disruption of external operation (surgical) wound, not elsewhere classified, initial encounter - Allergy status to sulfonamides - Disruption of external operation (surgical) wound, not elsewhere classified, initial encounter 06/17/2020 22:49 [facility] [place] TYPE: Emergency COMPLAINT: - GLF INJURED LEG DIAGNOSES: - Allergy status to narcotic agent - Allergy status to analgesic agent - Allergy status to sulfonamides - Other parts counterman (current) drug therapy - Unspecified fracture of lower end of right femur, initial encounter for closed fracture - Overexertion from prolonged static or awkward postures, initial encounter - Allergy status to other drugs, medicaments and biological substances INPATIENT VISIT TRACKING (12 MO.) 06/18/2020 12:38 [facility] [place] TYPE: Medical Surgical COMPLAINT: - Right Femur Frature DIAGNOSES: 0. Periprosthetic fracture around internal prosthetic right knee joint, initial encounter 1. Pain in right knee 1. Other fracture of lower end of right femur, initial encounter for closed fracture 2. Acute posthemorrhagic anemia 3. Body mass index [BMI] 50.0-59.9, adult 4. Acute pain due to trauma 5. Fall (on) (from) other stairs and steps, initial encounter 6. Presence of artificial knee joint, bilateral 7. Morbid (severe) obesity due to excess calories 8. Essential (primary) hypertension 9. Polyosteoarthritis, unspecified 10. Presence of right artificial shoulder joint 11. Anemia in other chronic diseases classified elsewhere 12. Hypomagnesemia 13. Overactive bladder 14. Contact with and (suspected) exposure to COVID19 15. Bariatric surgery status [email or web address]
== END 2020-07-29 19:57 | disposition home or self-care (01) ==
LOC: ED 14:51
DX: T81.31XA Disruption of external operation (surgical) wound, not elsewhere classified, initial encounter (principal); Z88.2 Allergy status to sulfonamides; Z88.6 Allergy status to analgesic agent; Z88.5 Allergy status to narcotic agent; Z88.1 Allergy status to other antibiotic agents; Z88.8 Allergy status to other drugs, medicaments and biological substances; Z79.899 Other long term (current) drug therapy
CPT/HCPCS: 99282

== ENCOUNTER 2020-09-10 19:54 | Emergency (ER) | payer OTHER ==
[~2020-09-10] VITALS: Ht 162.6 cm; Wt 132.8 kg
== END 2020-09-11 01:10 | disposition home or self-care (01) ==
LOC: ED 19:54
DX: M96.89 Other intraoperative and postprocedural complications and disorders of the musculoskeletal system (principal); I10 Essential (primary) hypertension; Z88.2 Allergy status to sulfonamides; Z88.6 Allergy status to analgesic agent; Z88.1 Allergy status to other antibiotic agents; Z88.5 Allergy status to narcotic agent; Z79.899 Other long term (current) drug therapy
CPT/HCPCS: 73701; 80053; 85025; 85651; 99284-25; Q9967

== ENCOUNTER 2021-03-29 18:40 | Emergency (ER) | payer OTHER ==
[~2021-03-29] VITALS: Ht 162.6 cm; Wt 132.8 kg
--- OUTSIDE RECORDS SUMMARY | 2021-03-29 18:44 | XMS ---
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 Care History Medical/Surgical 07/30/2020 [facility] - Patient is currently established with [facility]. If patient is seen in the ED during business hours. Please contact [facility] at [facility]. Care Recommendation: If this patient has had 5 or more Emergency Department visits in the last 12 months.\T\nbsp; Patient will require education on the scope and purpose of the ED as an acute care provider not a Primary Care Provider and should not be utilized for chronic conditions.\T\nbsp; These are guidelines and the provider should exercise clinical judgment when providing care. E.D. VISIT COUNT (12 MO.) 5 [facility] TOTAL 5 NOTE: Visits indicate total known visits. ED/UCC VISIT TRACKING (12 MO.) 03/29/2021 18:[address] [facility] [place] TYPE: Emergency COMPLAINT: - FALL, R HAND INJURY 09/10/2020 19:55 [facility] [place] TYPE: Emergency COMPLAINT: - RT LEG PAIN/NON INJURY DIAGNOSES: - Localized swelling, mass and lump, right lower limb - Allergy status to other antibiotic agents - Allergy status to analgesic agent - Other ad terminal makeup operator (current) drug therapy - Essential (primary) hypertension - Allergy status to sulfonamides - Other intraoperative and postprocedural complications and disorders of the musculoskeletal system - Fracture of femur following insertion of orthopedic implant, joint prosthesis, or bone plate, right leg - Allergy status to narcotic agent 07/29/2020 14:52 [facility] [place] TYPE: Emergency COMPLAINT: - WOUND INFECTION DIAGNOSES: - Allergy status to analgesic agent - Other ad terminal makeup operator (current) drug therapy - Disruption of external operation (surgical) wound, not elsewhere classified, initial encounter - Allergy status to narcotic agent - Allergy status to other drugs, medicaments and biological substances - Disruption of external operation (surgical) wound, not elsewhere classified, initial encounter - Allergy status to other antibiotic agents - Allergy status to sulfonamides 07/26/2020 13:08 [facility] [place] TYPE: Emergency COMPLAINT: - POST OP PROBLEM DIAGNOSES: - Allergy status to other drugs, medicaments and biological substances - Allergy status to other antibiotic agents - Allergy status to analgesic agent - Allergy status to narcotic agent - Other retirement (current) drug therapy - Disruption of external [...] - Allergy status to sulfonamides - Other ad terminal makeup operator (current) drug therapy - Unspecified fracture of lower end of right femur, initial encounter for closed fracture - Overexertion from prolonged static or awkward postures, initial encounter - Allergy status to other drugs, medicaments and biological substances INPATIENT VISIT TRACKING (12 MO.) 06/18/2020 12:38 [facility] [place] TYPE: Medical Surgical COMPLAINT: - Right [...] exposure to COVID19 15. Bariatric surgery status [email or web address]
[2021-03-29] MEDS ORDERED: HYDROCODON-ACE1 EA10 PO (19:37)
== END 2021-03-29 20:17 | disposition home or self-care (01) ==
LOC: ED 18:40
DX: S92.354A Nondisplaced fracture of fifth metatarsal bone, right foot, initial encounter for closed fracture (principal); S60.221A Contusion of right hand, initial encounter; W01.0XXA Fall on same level from slipping, tripping and stumbling without subsequent striking against object, initial encounter; D64.9 Anemia, unspecified; I10 Essential (primary) hypertension; Z88.2 Allergy status to sulfonamides; Z88.8 Allergy status to other drugs, medicaments and biological substances; Z88.5 Allergy status to narcotic agent; Z88.1 Allergy status to other antibiotic agents; Z79.51 Long term (current) use of inhaled steroids; Z79.899 Other long term (current) drug therapy
CPT/HCPCS: 73130; 73630; 99283-25

== ENCOUNTER 2023-11-02 00:21 | Emergency (ER) | payer OTHER ==
[~2023-11-02] VITALS: Ht 162.6 cm; Wt 135.0 kg
[~2023-11-02 00:21] MED LIST changes: +HYDROCODON-ACE1 EA10 PO; +PREDNISONE20 MG PO
[2023-11-02] MEDS ORDERED: ACETAMINOPHEN 500 MG TAB PO ONE (00:45)
[2023-11-02 02:10] VITALS: BP 145/77
== END 2023-11-02 02:11 | disposition home or self-care (01) ==
LOC: ED 00:21
DX: S90.31XA Contusion of right foot, initial encounter (principal); I10 Essential (primary) hypertension; W01.0XXA Fall on same level from slipping, tripping and stumbling without subsequent striking against object, initial encounter; Z88.2 Allergy status to sulfonamides; Z88.5 Allergy status to narcotic agent; Z88.8 Allergy status to other drugs, medicaments and biological substances; Z79.899 Other long term (current) drug therapy
CPT/HCPCS: 73630; 99283; A9270

== ENCOUNTER 2023-12-23 04:37 | Emergency (ER) | payer OTHER ==
[~2023-12-23] VITALS: Ht 162.6 cm; Wt 120.0 kg
[2023-12-23] MEDS ORDERED: HYDROmorphone HCL 1 MG/ML SYR IM ONE (05:00)
[2023-12-23 06:05] VITALS: BP 124/86
== END 2023-12-23 06:05 | disposition home or self-care (01) ==
LOC: ED 04:37
DX: S62.626A Displaced fracture of middle phalanx of right little finger, initial encounter for closed fracture (principal); S01.111A Laceration without foreign body of right eyelid and periocular area, initial encounter; S80.01XA Contusion of right knee, initial encounter; S00.81XA Abrasion of other part of head, initial encounter; I10 Essential (primary) hypertension; Z88.2 Allergy status to sulfonamides; Z88.6 Allergy status to analgesic agent; Z88.5 Allergy status to narcotic agent; Z88.1 Allergy status to other antibiotic agents; Z79.899 Other long term (current) drug therapy; W01.0XXA Fall on same level from slipping, tripping and stumbling without subsequent striking against object, initial encounter
CPT/HCPCS: 12001; 26725; 70450; 73140; 73560; 99283-25; J1171